=== PATIENT | male | born 1950 | race Two or more races ===

== ENCOUNTER 2022-06-22 10:58 | Observation (INO) ==
[2022-06-22 11:03] VITALS: BMI 32.5
--- NOTE | 2022-06-22 11:52 | DR.GENAD ---
HPI Time Seen Time Seen by Provider: 06/22/22 11:50 PCP Primary Care Physician: Porfirio Complaint/Symptoms Chief Complaint:: Pt c/o rectal bleeding x 2 to 3 weeks. He was scheduled to see Dr. Monroy at 3pm today for this complaint but nurse at office advised pt to come to ER instead. Pt states the amount of blood varies but is usually bright red and contains clots at times. Pt also c/o rectal pain. COVID-19 Coronavirus risk:travel/contact w/high risk person: No Has patient experienced Coronavirus symptoms: No Source History Provided: Patient Mode of Arrival Mode of Arrival: Ambulatory Timing Onset of Chief Complaint: 06/22/22 PMH PMH Past Medical History: Yes Past Medical History: Coronary Artery Disease, GERD, Hypertension, Liver Disease and Sleep Apnea Past Surgical History: Yes Surgical History: Cholecystectomy Past Surgical History Comment: cardiac stent placement x 2, "acid reflux surgery" Family History History of Family Medical Conditions: Yes Family Medical History: Diabetes Mellitus and Coronary Artery Disease Social History Does patient currently use any type of tobacco product: No Have you used tobacco products in the last 12 months: No Type of Tobacco Use: None Does any household member use tobacco: No Do you use any recreational Drugs:: No Lives With: Family Lives Where: Home Travel Risk Coronavirus risk:travel/contact w/high risk person: No Has patient experienced Coronavirus symptoms: No Infectious screening In the last 2 months have you had wt loss of >10#?: NO Have you had fever, night sweats or hemotysis?: No Have you traveled outside the country in the last 6 months?: No Isolation: Standard PE Vital Signs Vitals: Temperature 98.1 F Pulse Rate 80 Respiratory Rate 18 Blood Pressure [Left Arm] 144/67 Blood Pressure 151/69 O2 Sat by Pulse Oximetry 99 ROR Labs Reviewed Result Diagrams: 06/22/22 12:15 06/22/22 12:15 Laboratory: WBC 5.6 X10^3/uL (3.6-10.0) 06/22/22 12:15 RBC 3.64 X10^6/uL (4.7-6.0) L 06/22/22 12:15 Hgb 12.8 g/dL (13.5-18.0) L 06/22/22 12:15 Hct 35.7 % (42.0-54.0) L 06/22/22 12:15 MCV 98.1 fL (80.0-100.0) 06/22/22 12:15 MCH 35.1 pg (27.0-34.0) H 06/22/22 12:15 MCHC 35.7 g/dL (33.0-35.0) H 06/22/22 12:15 RDW 14.7 % (11.6-16.5) 06/22/22 12:15 Plt Count 151 X10^3/uL (150.0-450.0) 06/22/22 12:15 MPV 7.4 fL (7.4-11.0) 06/22/22 12:15 Neut % (Auto) 63.6 % (42.0-75.0) 06/22/22 12:15 Lymph % (Auto) 16.0 % (21.0-51.0) L 06/22/22 12:15 [place] % (Auto) 16.5 % (0.0-13.0) H 06/22/22 12:15 Eos % (Auto) 3.4 % (0.9-2.9) H 06/22/22 12:15 Baso % (Auto) 0.5 % (0.2-1.0) 06/22/22 12:15 Neut # (Auto) 3.6 x10^3/uL (2.2-4.8) 06/22/22 12:15 Lymph # (Auto) 0.9 X10^3/uL (1.3-2.9) L 06/22/22 12:15 [place] # (Auto) 0.9 x10^3/uL (0.3-0.8) H 06/22/22 12:15 Eos # (Auto) 0.2 x10^3/uL (0.0-0.2) 06/22/22 12:15 Baso # (Auto) 0.0 X10^3/uL (0.0-0.1) 06/22/22 12:15 Absolute Nucleated RBC 0.0 /100WBC 06/22/22 12:15 Sodium 138 mmol/L (136-145) 06/22/22 12:15 Corrected Sodium TNP 06/22/22 12:15 Potassium 3.7 mmol/L (3.5-5.1) 06/22/22 12:15 Chloride 104 mmol/L (98-107) 06/22/22 12:15 Carbon Dioxide 28.1 mmol/L (21-32) 06/22/22 12:15 BUN 11 mg/dL (7-18) 06/22/22 12:15 Creatinine 0.89 mg/dL (0.70-1.30) 06/22/22 12:15 Est GFR (MDRD) Af Amer > 60 (>60) 06/22/22 12:15 Est GFR (MDRD) Non-Af > 60 (>60) 06/22/22 12:15 Glucose 87 mg/dL (65-99) 06/22/22 12:15 Calcium 7.8 mg/dL (8.5-10.1) L 06/22/22 12:15 Corrected Calcium 9.7 mg/dL (8.5-10.1) 06/22/22 12:15 Total Bilirubin 2.20 mg/dL (0.2-1.0) H 06/22/22 12:15 AST 109 Units/L (15-37) H 06/22/22 12:15 ALT 45 Units/L (12-78) 06/22/22 12:15 Alkaline Phosphatase 245 Units/L (46-116) H 06/22/22 12:15 Ammonia 46 umol/L (11-32) H 06/22/22 12:15 Total Protein 6.7 g/dL (6.4-8.2) 06/22/22 12:15 Albumin 1.6 g/dL (3.4-5.0) L 06/22/22 12:15 Globulin 5.1 g/dL (2.5-4.5) H 06/22/22 12:15 Albumin/Globulin Ratio 0.3 Ratio (1.1-2.1) L 06/22/22 12:15 Amylase 36 Units/L (25-115) 06/22/22 12:15 Lipase 91 Units/L (73-393) 06/22/22 12:15 Specimen Type Clean catch urine 06/22/22 13:15 Urine Color Yellow (YELLOW) 06/22/22 13:15 Urine Appearance Clear (CLEAR) 06/22/22 13:15 Urine pH 8.0 (5.0 - 8.0) 06/22/22 13:15 Ur Specific [place] 1.015 (1.000-1.030) 06/22/22 13:15 Urine Protein Negative (NEGATIVE) 06/22/22 13:15 Urine Glucose (UA) Negative (NEGATIVE) 06/22/22 13:15 Urine Ketones Negative (NEGATIVE) 06/22/22 13:15 Urine Blood Negative (NEGATIVE) 06/22/22 13:15 Urine Nitrite Negative (NEGATIVE) 06/22/22 13:15 Urine Bilirubin Negative (NEGATIVE) 06/22/22 13:15 Urine Urobilinogen Normal (NORMAL) 06/22/22 13:15 Ur Leukocyte Esterase Negative (NEGATIVE) 06/22/22 13:15 Stool Description 100 grams 06/22/22 13:15 Stl Occult Blood (IFOB) Positive (NEGATIVE) A 06/22/22 13:15 SARS-CoV-2 (PCR) Negative (NEGATIVE) 06/22/22 15:52 Opioid Opioid Risk Tool Age (Sukhwinder box if 16-45): No History of Preadolescent Sexual Abuse: No Total: 0 Total Score Risk Category: Low Risk Copyright: Julio Cesar BURDICK predicting aberrant behaviors Discharge Plan Diagnosis Discharge Problem: Rectal bleeding, Hyperammonemia, Liver disease Discharge Plan Patient Disposition: 09 ADMITTED INPATIENT Condition: Stable Orders to Discharge Patient Discharge Orders: Transfer (Routine); Ordered 06/22/22 Ordered By: NAM BANERJEE
[2022-06-22 12:20] LABS: BASOPHILS % (AUTO) 0.5 % (0.2-1.0); EOSINOPHILS # (AUTO) 0.2 x10^3/uL (0.0-0.2); EOSINOPHILS % (AUTO) 3.4 % (0.9-2.9); HEMATOCRIT 35.7 % (42.0-54.0); HEMOGLOBIN 12.8 g/dL (13.5-18.0); LYMPHOCYTES # (AUTO) 0.9 X10^3/uL (1.3-2.9); MEAN CORPUSCULAR HEMOGLOBIN 35.1 pg (27.0-34.0); MEAN CORPUSCULAR HGB CONC 35.7 g/dL (33.0-35.0); MEAN CORPUSCULAR VOLUME 98.1 fL (80.0-100.0); MEAN PLATELET VOLUME 7.4 fL (7.4-11.0); MONOCYTES # (AUTO) 0.9 x10^3/uL (0.3-0.8); MONOCYTES % (AUTO) 16.5 % (0.0-13.0); NEUTROPHILS # (AUTO) 3.6 x10^3/uL (2.2-4.8); NEUTROPHILS % (AUTO) 63.6 % (42.0-75.0); RED BLOOD COUNT 3.64 X10^6/uL (4.7-6.0); RED CELL DISTRIBUTION WIDTH 14.7 % (11.6-16.5); WHITE BLOOD COUNT 5.6 X10^3/uL (3.6-10.0)
[2022-06-22 12:38] LABS: AMMONIA 46 umol/L (11-32)
[2022-06-22 12:42] LABS: ALANINE AMINOTRANSFERASE 45 Units/L (12-78); ALBUMIN 1.6 g/dL (3.4-5.0); ALKALINE PHOSPHATASE 245 Units/L (46-116); AMYLASE 36 Units/L (25-115); ASPARTATE AMINO TRANSFERASE 109 Units/L (15-37); BLOOD UREA NITROGEN 11 mg/dL (7-18); CALCIUM 7.8 mg/dL (8.5-10.1); CARBON DIOXIDE 28.1 mmol/L (21-32); CHLORIDE 104 mmol/L (98-107); COR CA(FOR HYPOALB) 9.7 mg/dL (8.5-10.1); CREATININE 0.89 mg/dL (0.70-1.30); LIPASE 91 Units/L (73-393); SODIUM 138 mmol/L (136-145); TOTAL PROTEIN 6.7 g/dL (6.4-8.2); eGFR NON BLACK RACES > 60 (>60)
[2022-06-22 13:24] LABS: BILIRUBIN,URINE NEGATIVE (NEGATIVE); BLOOD/HEMOGLOBIN,URINE NEGATIVE (NEGATIVE); GLUCOSE, URINE NEGATIVE (NEGATIVE); KETONES,URINE NEGATIVE (NEGATIVE); LEUKOCYTE ESTERASE ,URINE NEGATIVE (NEGATIVE); NITRITES,URINE NEGATIVE (NEGATIVE); PROTEIN,URINE NEGATIVE (NEGATIVE); UROBILINOGEN,URINE NORMAL (NORMAL)
[2022-06-22 13:28] LABS: APPEARANCE,URINE CLEAR (CLEAR); COLOR,URINE YELLOW (YELLOW)
[2022-06-22] MEDS ORDERED: BUTT CREAM (COMPOUND) TOP PRN (18:14)
[2022-06-22] MEDS ORDERED: BUTT CREAM (COMPOUND) ONE (18:15)
[2022-06-22] MEDS ORDERED: CHRONULAC ONE (18:17)
[2022-06-22] MEDS: CHRONULAC PO SCH ×2 (18:22→22:58)
[2022-06-22] MEDS ORDERED: PriLOSEC PO SCH (21:03)
[2022-06-22] MEDS: XIFAXAN PO SCH (22:58)
[2022-06-22] MEDS: PriLOSEC PO SCH (22:58)
[2022-06-23] MEDS: CHRONULAC PO SCH ×3 (05:28→21:03)
[2022-06-23 06:02] LABS: AMMONIA 76 umol/L (11-32)
[2022-06-23 06:18] LABS: BASOPHILS % (AUTO) 0.6 % (0.2-1.0); EOSINOPHILS # (AUTO) 0.2 x10^3/uL (0.0-0.2); EOSINOPHILS % (AUTO) 4.2 % (0.9-2.9); HEMATOCRIT 33.1 % (42.0-54.0); HEMOGLOBIN 11.7 g/dL (13.5-18.0); LYMPHOCYTES # (AUTO) 1.1 X10^3/uL (1.3-2.9); LYMPHOCYTES % (AUTO) 20.5 % (21.0-51.0); MEAN CORPUSCULAR HGB CONC 35.3 g/dL (33.0-35.0); MEAN CORPUSCULAR VOLUME 99.1 fL (80.0-100.0); MEAN PLATELET VOLUME 7.7 fL (7.4-11.0); MONOCYTES # (AUTO) 0.9 x10^3/uL (0.3-0.8); MONOCYTES % (AUTO) 16.3 % (0.0-13.0); NEUTROPHILS # (AUTO) 3.1 x10^3/uL (2.2-4.8); NEUTROPHILS % (AUTO) 58.4 % (42.0-75.0); RED BLOOD COUNT 3.33 X10^6/uL (4.7-6.0); RED CELL DISTRIBUTION WIDTH 14.7 % (11.6-16.5); WHITE BLOOD COUNT 5.4 X10^3/uL (3.6-10.0)
[2022-06-23 06:25] LABS: ALANINE AMINOTRANSFERASE 42 Units/L (12-78); ALBUMIN 1.4 g/dL (3.4-5.0); ALKALINE PHOSPHATASE 233 Units/L (46-116); AMYLASE 32 Units/L (25-115); ASPARTATE AMINO TRANSFERASE 102 Units/L (15-37); BLOOD UREA NITROGEN 11 mg/dL (7-18); CALCIUM 7.9 mg/dL (8.5-10.1); CHLORIDE 106 mmol/L (98-107); CREATININE 0.77 mg/dL (0.70-1.30); LIPASE 91 Units/L (73-393); MAGNESIUM 1.8 mg/dL (1.7-2.9); SODIUM 139 mmol/L (136-145); TOTAL PROTEIN 5.9 g/dL (6.4-8.2); eGFR NON BLACK RACES > 60 (>60)
[2022-06-23] MEDS: ALBUMIN HUMAN 25%- 100 ML 100 ML IV SCH (09:53)
[2022-06-23] MEDS: FLOMAX PO SCH (09:54)
[2022-06-23] MEDS: XIFAXAN PO SCH ×2 (09:54→20:18)
[2022-06-23] MEDS: LASIX PO SCH (09:54)
[2022-06-23] MEDS: PriLOSEC PO SCH (09:54)
[2022-06-23] MEDS: AMILORIDE 5 MG PO SCH (09:57)
[2022-06-23] MEDS: FLONASE NASAL SPRAY ENOSTRIL SCH ×2 (09:59→10:00)
--- NOTE | 2022-06-23 11:40 | DR.CONSULT ---
Consult - Consultation for Day of: Date: 06/23/22 - Chief Complaint Chief Complaint: Pt referred for rectal bleeding. - History of Present Illness History of Present Illness: Pt is a 72 y/o who is referred for rectal bleeding. Pt has complaints of rectal bleeding x3-4 weeks that became worse last week, and frequent lower abdominal pain. Denies dysphagia, dyspepsia, N/V, diarrhea, constipation, and melena. Pt reports last EGD and colonoscopy were November 2021, done at [facility] in [place], at which time 2-3 colon polyps were removed. 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 Currently takes Omeprazole daily. Pt is also on Lactulose daily. Denies current or past ETOH use. Hgb 11.7, Hct 33.1, Plt 139, Bun 11, Creat 0.77, T.bili 1.80, Ast 102, Alt 42, Alp 233, Ammonia 76. - Past Medical History Past Medical History: Coronary Artery Disease, Hypertension, Liver Disease, GERD, Sleep Apnea - Past Surgical History Surgical History: Cholecystectomy - Family History Family Medical History: Diabetes Mellitus, Coronary Artery Disease - Social History Does patient currently use any type of tobacco product: No Have you used tobacco products in the last 12 months: No Type of Tobacco Use: None Does any household member use tobacco: No Alcohol Use: None Drug Use: None - Medications Home Medications: No Known Drug Allergies [NKDA] Allergy (Verified 05/21/20 03:06) CONTINUE taking the following medications amiloride 5 mg tablet 10 tab PO DAILY 06/22/22 [History] cephalexin 500 mg capsule 1 cap PO QID 06/22/22 [History] fluticasone propionate 50 mcg/actuation nasal spray,suspension 50 spray intranasal PRN PRN 06/22/22 [History] furosemide 40 mg tablet 1 tab PO QDAY 06/22/22 [History] lactulose 10 gram/15 mL oral solution (Constulose) 30 ml PO TID 06/22/22 [History] omeprazole 20 mg capsule,delayed release 1 cap PO QDAY 06/22/22 [History] omeprazole 20 mg capsule,delayed release 1 cap PO QDAY 06/22/22 [History] rifaximin 550 mg tablet (Xifaxan) 1 tab PO BID 06/22/22 [History] tamsulosin 0.4 mg capsule 1 cap PO QDAY 06/22/22 [History] ticagrelor 90 mg tablet (Brilinta) 1 tab PO BID 06/22/22 [History] - Review of Systems Constitutional: denies: No Symptoms Reported, See HPI, Fever, Chills, Sweats, Weakness, Malaise, Other Eyes: denies: No Symptoms Reported, See HPI, Pain, Vision Change, Conjunctivae Inflammation, Eyelid Inflammation, Redness, Other ENT: denies: No Symptoms Reported, See HPI, Ear Pain, Ear Discharge, Nose Pain, Nose Discharge, Nose Congestion, Mouth Pain, Mouth Swelling, Throat Pain, Throat Swelling, Other Respiratory: denies: No Symptoms Reported, See HPI, Cough, Dry, Shortness of Breath, Hemoptysis, SOB with Excertion, Pleuritic Pain, Sputum, Wheezing, Other Cardiovascular: denies: No Symptoms Reported, Chest Pain, See HPI, Palpitations, Orthopnea, Paroxysmal Noc. Dyspnea, Edema, Light Headedness, Other Gastrointestinal: Abdominal Pain (Lower, comes and goes), Hematochezia. denies: No Symptoms Reported, See HPI, Nausea, Vomiting, Diarrhea, Constipation, Melena, Other Genitourinary: denies: No Symptoms Reported, See HPI, Dysuria, Frequency, Incontinence, Hematuria, Retention, Other Musculoskeletal: denies: No Symptoms Reported, See HPI, Shoulder Pain, Arm Pain, Back Pain, Hand Pain, Leg Pain, Foot Pain, Neck Pain, Other Skin: denies: No Symptoms Reported, See HPI, Rash, Lesions, Jaundice, Bruising, Wound, Ecchymosis, Other Neurological: denies: No Symptoms Reported, See HPI, Weakness, Numbness, Incoordination, Change in Speech, Confusion, Seizures, Other - Physical Exam Vital Signs: Temperature 98.3 F Pulse Rate [Left Brachial] 71 Pulse Rate 80 Respiratory Rate 20 Blood Pressure [Left Arm] 135/70 Blood Pressure 151/69 O2 Sat by Pulse Oximetry 95 Oriented: Normal. negative: Time, Person, Place, Not Oriented, Unable to test, Other Eyes: Normal Throat: negative: Normal, Tonsillar Hypertrophy, Red, Exudate, Dry, Other Respiratory: Clear Throughout. negative: Diminished Throughout, Rhonchi Throughout, Rales Throughout, Wheezes Throughout, RUL Clear, RML Clear, RLL Clear, JEAN-PAUL Clear, LML Clear, LLL Clear, RUL Diminished, RML Diminished, RLL Diminished, JEAN-PAUL Diminished, LML Diminished, LLL Diminished, RUL Absent, RML Absent, RLL Absent, JEAN-PAUL Absent, LML Absent, LLL Absent, RUL Rhonchi, RML Rhonchi, RLL Rhonchi, JEAN-PAUL Rhonchi, LML Rhonchi, LLL Rhonchi, RUL Insp. Wheeze, RML Insp. Wheeze, RLL Insp. Wheeze, JEAN-PAUL Insp.Wheeze, LML Insp.Wheeze, LLL Insp.W heeze, RUL Exp. Wheeze, RML Exp. Wheeze, RLL Exp. Wheeze, JEAN-PAUL Exp. Wheeze, LML Exp. Wheeze, LLL Exp. Wheeze, RUL Rales, RML Rales, RLL Rales, JEAN-PAUL Rales, LML Rales, LLL Rales, RUL Rub, RML Rub, RLL Rub, JEAN-PAUL Rub, LML Rub, LLL Rub, RUL Squeak, RML Squeak, RLL Squeak, JEAN-PAUL Squeak, LML Squeak, LLL Squeak Cardiovascular: Normal. negative: Tachycardia, Bradycardia, Irregular, S3, S4, Systolic, Diastolic, Murmur, Edema, Other : Normal. negative: Dysuria, Hematuria, Frequency, Discharge, Testicular Pain, Bleeding, , Other Auscultation: Bowel Sounds: Normal. negative: Bruit, Absent, Increased, Decreased, High Pitched, Other Tenderness: Normal (Non-tender), Other (Abdominal distention). negative: Diffuse, RUQ, RLQ, LUQ, LLQ, Epigastric, Periumbilical, Suprapubic, Mild, Moderate, Severe, Rebound, Guarding, Rigidity Skin: Normal. negative: Decreased Turgur, Rash, Papular, Macular, Maculopapular, Vesicular, Pustular, Petechial, Red, Tender, Hot, Diaphoresis, Wound, Bruising, Ecchymosis, Other Musculoskeletal: Normal. negative: Right, Left, Shoulder, Clavicle, Arm, Elbow, Forearm, Wrist, Hand, Hip, Thigh, Knee, Leg, Ankle, Foot, Back:Thoracic, Back:Lumbar, Back:Midline, Back:Paraspinous, Pelvis, Swelling, Tender, Deformity, Pulse Deficit, Motor Deficit, Sensory Deficit, Instability, Crepitance Psychiatric: Normal. negative: Anxiety, Depression, Agitation, Other Mood Description: Calm. negative: Angry, Apathetic, Depressed, Fearful, Flat, Happy, Hostile, Sad, Suspicious, Withdrawn, Anxious, Appropriate, Labile Affect: negative: Angry, Anxious, Depressed, Flat, Hysterical, Quiet, Violent, Normal Speech Pattern: Clear, Appropriate. negative: Unclear, Inappropriate, Delayed, Slurred, Excessive, Aphasic, Artificially Ventilated, Trach(not ventilated) - Plan Plan: Assessment. 1. Hematochezia, H/O rectal polyps. 2. Abnormal LFTs. 3. Anemia. Plan. 1. Liver workup, continue to monitor LFTs. Monitor Hgb, transfuse as needed. Will plan on colonoscopy . Plan D/W Dr. Arceo - Allergies Allergies/Adverse Reactions: Allergies Allergy/AdvReac Type Severity Reaction Status Date / Time No Known Drug Allergies Allergy Verified 05/21/20 03:06 [NKDA]
[2022-06-23 12:01] LABS: ALBUMIN 1.4 g/dL (3.4-5.0); BILIRUBIN,DIRECT 1.1 mg/dL (0-0.2); TOTAL PROTEIN 5.9 g/dL (6.4-8.2)
--- NOTE | 2022-06-23 13:56 | DR.H&P ---
H&P - History & Physical for Day of: H&P Date: 06/22/22 - Chief Complaint Chief Complaint: RECTAL BLEEDING, LOWER ABDOMINAL PAIN - History of Present Illness History of Present Illness: IS A 72 YEAR OLD PATIENT OF OURS. HE PRESENTED TO THE ER WITH COMPLAINTS OF RECTAL BLEEDING FOR THE PAST 2-3 WEEKS AND LOWER ABDOMINAL PAIN. HE DESCRIBES BLOOD BRIGHT RED WITH CLOTS AT TIMES. HE ALSO COMPLAINS OF RECTAL PAIN. HE DENIES DYSPHAGIA, DYSPEPSIA, N/V, DIARRHEA, CONSTIPATION, AND MELENA. HE REPORTS HAVING CARDIAC STENT PLACEMENT X 2 ON MAY 29. HE WAS STARTED ON BRILINTA AT THAT TIME. OTHER PMH INCLUDES: CAD, GERD, HTN, LIVER DISEASE, SLEEP APNEA. HE REPORTS THAT HE IS ON STANDBY FOR THE LIVER TRANSPLANT LIST UNTIL HE COMES OFF OF THE BRILINTA. ON ARRIVAL, HIS VITALS WERE: 98.1-80-18-96%-151/69. LABS WERE OBTAINED. WBC 5.6, RBC 3.64, HGB 12.8, HCT 35.7, SODIUM 138, POTASSIUM 3.7, CHLORIDE 104, BUN 11, CREATININE 0.89, GLUCOSE 87, CALCIUM 7.8, TOTAL BILI 2.20, AST 109, ALT 45, ALK PHOS 245, AMMONIA 46, TOTAL PROTEIN 6.7, ALBUMIN 1.6, GLOBULIN 5.1. URINALYSIS WAS OBTAINED AND WAS UNREMARKABLE. STOOL FOR OCCULT BLOOD IS POSITIVE. COVID-19 NEGATIVE. PATIENT WAS ADMITTED TO THE HOSPITAL FOR FURTHER EVALUATION AND TREATMENT OF RECTAL BLEEDING, HYPERAMMONEMIA, AND LIVER DISEASE. HE WAS STARTED ON ALBUMIN 25% IV DAILY, PEPCID 20MG IV BID, PROTONIX 40MG IV BID. HIS HOME MEDICATIONS OF LASIX, CHRONULAC, PRILOSEC, XIFAXAN, BRILINTA, AND FLOMAX WERE ALSO RESUMED. WE HAVE CONSULTED WITH AND HE PLANS TO SEE PATIENT TODAY. OTHERWISE, WE WILL FOLLOW-UP WITH AM LABS AND CONTINUE TO MONITOR. TIME SPENT ON CLINICAL ASSES SMENT, REVIWING LABS AND IMAGING, DECISION MAKING, AND DOCUMENTATION GREATER THAN 45 MINUTES. - Past Medical History Past Medical History: Coronary Artery Disease, Hypertension, Liver Disease, GERD, Sleep Apnea - Past Surgical History Surgical History: Cholecystectomy - Family History Family Medical History: Diabetes Mellitus, Coronary Artery Disease - Social History Does patient currently use any type of tobacco product: No Have you used tobacco products in the last 12 months: No Type of Tobacco Use: None Does any household member use tobacco: No Alcohol Use: None Drug Use: None - Medications Home Medications: No Known Drug Allergies [NKDA] Allergy (Verified 05/21/20 03:06) CONTINUE taking the following medications amiloride 5 mg tablet 10 tab PO DAILY 06/22/22 [History] cephalexin 500 mg capsule 1 cap PO QID 06/22/22 [History] fluticasone propionate 50 mcg/actuation nasal spray,suspension 50 spray intranasal PRN PRN 06/22/22 [History] furosemide 40 mg tablet 1 tab PO QDAY 06/22/22 [History] lactulose 10 gram/15 mL oral solution (Constulose) 30 ml PO TID 06/22/22 [History] omeprazole 20 mg capsule,delayed release 1 cap PO QDAY 06/22/22 [History] omeprazole 20 mg capsule,delayed release 1 cap PO QDAY 06/22/22 [History] rifaximin 550 mg tablet (Xifaxan) 1 tab PO BID 06/22/22 [History] tamsulosin 0.4 mg capsule 1 cap PO QDAY 06/22/22 [History] ticagrelor 90 mg tablet (Brilinta) 1 tab PO BID 06/22/22 [History] - Review of Systems Eyes: No Symptoms Reported ENT: No Symptoms Reported Respiratory: No Symptoms Reported Cardiovascular: No Symptoms Reported Gastrointestinal: See HPI, Abdominal Pain, Hematochezia. denies: Nausea, Vomiting, Diarrhea, Constipation, Melena Genitourinary: No Symptoms Reported Musculoskeletal: No Symptoms Reported Skin: No Symptoms Reported Neurological: No Symptoms Reported - Physical Exam Vital Signs: Temperature 98.3 F Pulse Rate [Left Brachial] 71 Pulse Rate 80 Respiratory Rate 20 Blood Pressure [Left Arm] 135/70 Blood Pressure 151/69 O2 Sat by Pulse Oximetry 95 Oriented: Normal. negative: Time, Person, Place, Not Oriented, Unable to test, Other Eyes: Normal Ear: Normal Nose: Normal Throat: Normal Respiratory: Clear Throughout Cardiovascular: Normal : Normal Auscultation: Bowel Sounds: Normal Palpation: Normal Tenderness: RLQ, LLQ, Mild Skin: Normal Musculoskeletal: Normal Psychiatric: Normal Mood Description: Calm Affect: Normal Speech Pattern: Clear - Assessment/Plan (1) Rectal bleeding Status: Acute Plan: CONSULT GI, ALBUMIN 25% IV DAILY, PEPCID 20MG IV BID, PROTONIX 40MG IV BID, RESUME HOME MEDS (2) Hyperammonemia Status: Acute (3) Liver disease Status: Acute (4) HTN (hypertension) Qualifiers: Hypertension type: primary hypertension Qualified Code(s): I10 - Essential (primary) hypertension Status: Chronic (5) CAD (coronary artery disease) Qualifiers: Coronary Disease-Associated Artery/Lesion type: [place] artery [place] vs. transplanted heart: [place] heart Associated angina: unspecified whether angina present Qualified Code(s): I25.10 - Atherosclerotic heart disease of [place] coronary artery without angina pectoris Status: Chronic (6) S/P arterial stent Status: Acute - Allergies Allergies/Adverse Reactions: Allergies Allergy/AdvReac Type Severity Reaction Status Date / Time No Known Drug Allergies Allergy Verified 05/21/20 03:06 [NKDA]
[2022-06-23] MEDS: PEPCID 20 MG VIAL 20 MG in NS 50 ML IV 50 ML IV SCH ×2 (14:43→20:18)
[2022-06-23] MEDS: BRILINTA PO SCH ×2 (14:43→20:18)
[2022-06-23] MEDS: PROTONIX INJ 40 MG VIAL IVP SCH ×2 (14:43→20:18)
[2022-06-23] MEDS ORDERED: NS 500 ML IV 500 ML IV PRN (19:30)
[2022-06-23] MEDS ORDERED: NS 500 ML IV 500 ML IV ONE (19:40)
[2022-06-24] MEDS: CHRONULAC PO SCH ×3 (05:20→21:08)
[2022-06-24 06:03] LABS: BASOPHILS % (AUTO) 0.7 % (0.2-1.0); EOSINOPHILS # (AUTO) 0.2 x10^3/uL (0.0-0.2); EOSINOPHILS % (AUTO) 4.5 % (0.9-2.9); HEMOGLOBIN 12.1 g/dL (13.5-18.0); LYMPHOCYTES # (AUTO) 1.1 X10^3/uL (1.3-2.9); LYMPHOCYTES % (AUTO) 21.3 % (21.0-51.0); MEAN CORPUSCULAR HEMOGLOBIN 34.6 pg (27.0-34.0); MEAN CORPUSCULAR HGB CONC 35.5 g/dL (33.0-35.0); MEAN CORPUSCULAR VOLUME 97.5 fL (80.0-100.0); MEAN PLATELET VOLUME 7.5 fL (7.4-11.0); MONOCYTES # (AUTO) 0.8 x10^3/uL (0.3-0.8); MONOCYTES % (AUTO) 15.9 % (0.0-13.0); NEUTROPHILS % (AUTO) 57.6 % (42.0-75.0); RED BLOOD COUNT 3.49 X10^6/uL (4.7-6.0); RED CELL DISTRIBUTION WIDTH 14.7 % (11.6-16.5); WHITE BLOOD COUNT 5.2 X10^3/uL (3.6-10.0)
[2022-06-24 06:18] LABS: ALANINE AMINOTRANSFERASE 44 Units/L (12-78); ALBUMIN 1.8 g/dL (3.4-5.0); ALKALINE PHOSPHATASE 226 Units/L (46-116); ASPARTATE AMINO TRANSFERASE 101 Units/L (15-37); BLOOD UREA NITROGEN 9 mg/dL (7-18); CALCIUM 7.9 mg/dL (8.5-10.1); CARBON DIOXIDE 27.1 mmol/L (21-32); CHLORIDE 107 mmol/L (98-107); COR CA(FOR HYPOALB) 9.7 mg/dL (8.5-10.1); CREATININE 0.72 mg/dL (0.70-1.30); SODIUM 141 mmol/L (136-145); TOTAL PROTEIN 6.3 g/dL (6.4-8.2); eGFR NON BLACK RACES > 60 (>60)
[2022-06-24] MEDS: ALBUMIN HUMAN 25%- 100 ML 100 ML IV SCH (09:52)
[2022-06-24] MEDS: AMILORIDE 5 MG PO SCH ×3 (09:52→11:31)
[2022-06-24] MEDS: BRILINTA PO SCH ×2 (09:53→20:35)
[2022-06-24] MEDS: LASIX PO SCH (09:54)
[2022-06-24] MEDS: FLOMAX PO SCH (09:54)
[2022-06-24] MEDS: PEPCID 20 MG VIAL 20 MG in NS 50 ML IV 50 ML IV SCH ×2 (09:54→20:34)
[2022-06-24] MEDS: FLONASE NASAL SPRAY ENOSTRIL SCH (09:54)
[2022-06-24] MEDS: PROTONIX INJ 40 MG VIAL IVP SCH ×2 (09:55→20:34)
[2022-06-24] MEDS: XIFAXAN PO SCH ×2 (09:55→20:35)
[2022-06-24] MEDS ORDERED: DULCOLAX TAB EC 5 MG PO ONE (17:32)
[2022-06-24] MEDS ORDERED: MIRALAX POWDER (255 GRAMS BTL) PO ONE (18:00)
[2022-06-24] MEDS ORDERED: DULCOLAX TAB EC 5 MG PO SCH (21:00)
[2022-06-25 06:20] LABS: BASOPHILS % (AUTO) 0.4 % (0.2-1.0); EOSINOPHILS # (AUTO) 0.2 x10^3/uL (0.0-0.2); HEMATOCRIT 33.5 % (42.0-54.0); HEMOGLOBIN 11.9 g/dL (13.5-18.0); LYMPHOCYTES % (AUTO) 16.3 % (21.0-51.0); MEAN CORPUSCULAR HEMOGLOBIN 35.2 pg (27.0-34.0); MEAN CORPUSCULAR HGB CONC 35.6 g/dL (33.0-35.0); MEAN CORPUSCULAR VOLUME 98.7 fL (80.0-100.0); MEAN PLATELET VOLUME 7.5 fL (7.4-11.0); MONOCYTES % (AUTO) 16.2 % (0.0-13.0); NEUTROPHILS # (AUTO) 3.9 x10^3/uL (2.2-4.8); NEUTROPHILS % (AUTO) 63.1 % (42.0-75.0); RED BLOOD COUNT 3.39 X10^6/uL (4.7-6.0); RED CELL DISTRIBUTION WIDTH 14.9 % (11.6-16.5); WHITE BLOOD COUNT 6.1 X10^3/uL (3.6-10.0)
[2022-06-25] MEDS: CHRONULAC PO SCH ×2 (06:24→13:16)
[2022-06-25 06:44] LABS: ALANINE AMINOTRANSFERASE 43 Units/L (12-78); ALBUMIN 2.1 g/dL (3.4-5.0); ALKALINE PHOSPHATASE 211 Units/L (46-116); ASPARTATE AMINO TRANSFERASE 94 Units/L (15-37); BLOOD UREA NITROGEN 8 mg/dL (7-18); CALCIUM 8.1 mg/dL (8.5-10.1); CARBON DIOXIDE 27.4 mmol/L (21-32); CHLORIDE 107 mmol/L (98-107); COR CA(FOR HYPOALB) 9.6 mg/dL (8.5-10.1); CREATININE 0.77 mg/dL (0.70-1.30); SODIUM 141 mmol/L (136-145); TOTAL PROTEIN 6.4 g/dL (6.4-8.2); eGFR NON BLACK RACES > 60 (>60)
[2022-06-25] MEDS: AMILORIDE 5 MG PO SCH (08:41)
[2022-06-25] MEDS: FLOMAX PO SCH (08:42)
[2022-06-25] MEDS: LASIX PO SCH (08:42)
[2022-06-25] MEDS: BRILINTA PO SCH (08:42)
[2022-06-25] MEDS: ALBUMIN HUMAN 25%- 100 ML 100 ML IV SCH (08:43)
[2022-06-25] MEDS: FLONASE NASAL SPRAY ENOSTRIL SCH (08:46)
[2022-06-25] MEDS: XIFAXAN PO SCH (08:47)
[2022-06-25] MEDS: PROTONIX INJ 40 MG VIAL IVP SCH (08:49)
[2022-06-25] MEDS: PEPCID 20 MG VIAL 20 MG in NS 50 ML IV 50 ML IV SCH (10:09)
--- NOTE | 2022-06-25 12:43 | PCM.PROG ---
Progress Note - Progress Note for Day of Date of Exam: 06/24/22 - Subjective Subjective: IS CURRENTLY OBSERVATION STATUS FOR TREATMENT OF RECTAL BLEEDING, LOWER ABDOMINAL PAIN, HYPERAMMONEMIA, AND LIVER DISEASE. TODAY, HE IS ALERT AND ORIENTED, LYING IN BED ON MORNING ROUNDS. HE CONTINUES WITH COMPLAINTS OF LOWER ABDOMINAL PAIN AND CRAMPING AT TIMES. HE COMPLAINS OF INTERMITTENT WEAKNESS. HE CONTINUES TO HAVE BLOOD IN STOOL, HOWEVER, HE REPORTS THAT BLEEDING IS SLOWING DOWN. HE IS CURRENTLY ON BRILINTA DUE TO RECENT CARDIAC STENT PLACEMENT. ON EXAMINATION, HEART IS REGULAR IN RATE AND RHYTHM. BILATERAL LUNGS NOTED WITH DIMINISHED LUNG SOUNDS THROUGHOUT. ABDOMEN IS ROUND, SOFT, AND NOTED WITH MILD LOWER QUADRANTS TENDERNESS. NORMAL BOWEL SOUNDS ARE NOTED. NO UPPER OR LOWER EXTREMITY EDEMA NOTED. HIS VITALS THIS MORNING ARE: 98.3-71-20-95%-135/70. LABS WERE OBTAINED. WBC 5.2, RBC 3.49, HGB 12.1, HCT 34.0, PLT COUNT 145, SODIUM 141, POTASSIUM 3.8, CHLORIDE 107, BUN 9, CREATININE 0.72, GLUCOSE 76, CALCIUM 7.9, TOTAL BILI 2.30, AST 101, ALT 44, ALK PHOS 226, TOTAL PROTEIN 6.3, ALBUMIN 1.8. HE IS CURRENTLY RECEIVING ALBUMIN 25% IV DAILY, PEPCID 20MG IV BID, NC OTONIX 40MG IV BID. HIS HOME MEDICATIONS OF LASIX, CHRONULAC, PRILOSEC, XIFAXAN, BRILINTA, AND FLOMAX WERE ALSO RESUMED. HAS CONSULTED WITH PATIENT AND PLANS FOR A COLONOSCOPY T[place]. WE WILL BEGIN THE BOWEL PREP TONIGHT. OTHERWISE, WE WILL FOLLOW-UP WITH AM LABS AND CONTINUE TO MONITOR. TIME SPENT ON CLINICAL ASSESSMENT, REVIWING LABS AND IMAGING, DECISION MAKING, AND DOCUMENTATION GREATER THAN 45 MINUTES. - Past Medical Family Social History Past Med/Fam/Surg Hx: No changes since H&P Allergies: Allergies No Known Drug Allergies [NKDA] Allergy (Verified 05/21/20 03:06) - Review of Systems ROS: No change since H&P - Vital Signs and I&O's Vital Signs: Temperature 97.7 F Pulse Rate [Left Brachial] 63 Pulse Rate 80 Respiratory Rate 18 Blood Pressure [Left Arm] 136/65 Blood Pressure 151/69 O2 Sat by Pulse Oximetry 95 Intake and Output: Intake & Output 06/23/22 06/24/22 06/25/22 06/26/22 11:59 11:59 11:59 11:59 Intake Total 720 / 720 2593 / 2593 2680 / 2680 Balance 720 / 720 2593 / 2593 2680 / 2680 - Physical Exam Oriented: Normal. negative: Time, Person, Place, Not Oriented, Unable to test, Other Eyes: Normal Ear: Normal Nose: Normal Throat: Normal Respiratory: Generalized, Diminished Cardiovascular: Normal : Normal Auscultation: Bowel Sounds: Normal Palpation: Normal Tenderness: RLQ, LLQ, Mild Skin: Normal Musculoskeletal: Normal Psychiatric: Normal Mood Description: Calm Affect: Normal Speech Pattern: Clear - Laboratory and Diagnostics Result Diagrams: 06/25/22 05:29 06/25/22 05:29 Labs: Laboratory WBC 6.1 X10^3/uL (3.6-10.0) 06/25/22 05:29 RBC 3.39 X10^6/uL (4.7-6.0) L 06/25/22 05:29 Hgb 11.9 g/dL (13.5-18.0) L 06/25/22 05:29 Hct 33.5 % (42.0-54.0) L 06/25/22 05:29 MCV 98.7 fL (80.0-100.0) 06/25/22 05:29 MCH 35.2 pg (27.0-34.0) H 06/25/22 05:29 MCHC 35.6 g/dL (33.0-35.0) H 06/25/22 05:29 RDW 14.9 % (11.6-16.5) 06/25/22 05:29 Plt Count 140 X10^3/uL (150.0-450.0) L 06/25/22 05:29 MPV 7.5 fL (7.4-11.0) 06/25/22 05:29 Neut % (Auto) 63.1 % (42.0-75.0) 06/25/22 05:29 Lymph % (Auto) 16.3 % (21.0-51.0) L 06/25/22 05:29 [place] % (Auto) 16.2 % (0.0-13.0) H 06/25/22 05:29 Eos % (Auto) 4.0 % (0.9-2.9) H 06/25/22 05:29 Baso % (Auto) 0.4 % (0.2-1.0) 06/25/22 05:29 Neut # (Auto) 3.9 x10^3/uL (2.2-4.8) 06/25/22 05:29 Lymph # (Auto) 1.0 X10^3/uL (1.3-2.9) L 06/25/22 05:29 [place] # (Auto) 1.0 x10^3/uL (0.3-0.8) H 06/25/22 05:29 Eos # (Auto) 0.2 x10^3/uL (0.0-0.2) 06/25/22 05:29 Baso # (Auto) 0.0 X10^3/uL (0.0-0.1) 06/25/22 05:29 Absolute Nucleated RBC 0.1 /100WBC 06/25/22 05:29 PT 17.0 SECONDS (11.8-14.3) 06/23/22 05:09 INR Target Range - 06/23/22 05:09 INR 1.43 (0.8-1.3) H 06/23/22 05:09 Sodium 141 mmol/L (136-145) 06/25/22 05:29 Corrected Sodium TNP 06/25/22 05:29 Potassium 4.2 mmol/L (3.5-5.1) 06/25/22 05:29 Chloride 107 mmol/L (98-107) 06/25/22 05:29 Carbon Dioxide 27.4 mmol/L (21-32) 06/25/22 05:29 BUN 8 mg/dL (7-18) 06/25/22 05:29 Creatinine 0.77 mg/dL (0.70-1.30) 06/25/22 05:29 Est GFR (MDRD) Af Amer > 60 (>60) 06/25/22 05:29 Est GFR (MDRD) Non-Af > 60 (>60) 06/25/22 05:29 Glucose 76 mg/dL (65-99) 06/25/22 05:29 Calcium 8.1 mg/dL (8.5-10.1) L 06/25/22 05:29 Corrected Calcium 9.6 mg/dL (8.5-10.1) 06/25/22 05:29 Magnesium 1.8 mg/dL (1.7-2.9) 06/23/22 05:09 Iron 60 ug/dL (50-175) 06/23/22 06:09 Transferrin 121 mg/dL (202-364) L 06/23/22 06:09 Ferritin 301 ng/mL (26-388) 06/23/22 06:09 Total Bilirubin 2.50 mg/dL (0.2-1.0) H 06/25/22 05:29 Direct Bilirubin 1.10 mg/dL (0-0.2) H 06/23/22 06:09 Indirect Bilirubin 0.60 mg/dL (0.2-0.8) 06/23/22 06:09 AST 94 Units/L (15-37) H 06/25/22 05:29 ALT 43 Units/L (12-78) 06/25/22 05:29 Alkaline Phosphatase 211 Units/L (46-116) H 06/25/22 05:29 Ammonia 44 umol/L (11-32) H 06/25/22 08:55 Total Protein 6.4 g/dL (6.4-8.2) 06/25/22 05:29 Albumin 2.1 g/dL (3.4-5.0) L 06/25/22 05:29 Globulin 4.3 g/dL (2.5-4.5) 06/25/22 05:29 Albumin/Globulin Ratio 0.5 Ratio (1.1-2.1) L 06/25/22 05:29 Amylase 32 Units/L (25-115) 06/23/22 05:09 Lipase 91 Units/L (73-393) 06/23/22 05:09 Specimen Type Clean catch urine 06/22/22 13:15 Urine Color Yellow (YELLOW) 06/22/22 13:15 Urine Appearance Clear (CLEAR) 06/22/22 13:15 Urine pH 8.0 (5.0 - 8.0) 06/22/22 13:15 Ur Specific [place] 1.015 (1.000-1.030) 06/22/22 13:15 Urine Protein Negative (NEGATIVE) 06/22/22 13:15 Urine Glucose (UA) Negative (NEGATIVE) 06/22/22 13:15 Urine Ketones Negative (NEGATIVE) 06/22/22 13:15 Urine Blood Negative (NEGATIVE) 06/22/22 13:15 Urine Nitrite Negative (NEGATIVE) 06/22/22 13:15 Urine Bilirubin Negative (NEGATIVE) 06/22/22 13:15 Urine Urobilinogen Normal (NORMAL) 06/22/22 13:15 Ur Leukocyte Esterase Negative (NEGATIVE) 06/22/22 13:15 Stool Description 100 grams 06/22/22 13:15 Stl Occult Blood (IFOB) Positive (NEGATIVE) A 06/22/22 13:15 SARS-CoV-2 (PCR) Negative (NEGATIVE) 06/22/22 15:52 - Plan (1) Rectal bleeding Status: Acute Plan: CONSULT GI, ALBUMIN 25% IV DAILY, PEPCID 20MG IV BID, PROTONIX 40MG IV BID, RESUME HOME MEDS (2) Hyperammonemia Status: Acute (3) Liver disease Status: Acute (4) HTN (hypertension) Status: Chronic Qualifiers: Hypertension type: primary hypertension Qualified Code(s): I10 - Essential (primary) hypertension (5) CAD (coronary artery disease) Status: Chronic Qualifiers: Coronary Disease-Associated Artery/Lesion type: [place] artery [place] vs. transplanted heart: [place] heart Associated angina: unspecified whether angina present Qualified Code(s): I25.10 - Atherosclerotic heart disease of [place] coronary artery without angina pectoris (6) S/P arterial stent Status: Acute
[2022-06-25] MEDS ORDERED: D5 LR 1,000 ML 1,000 ML IV ONE (13:32)
[2022-06-25] MEDS ORDERED: DIPRIVAN VIAL 20 ML ONE ×2 (13:48→13:55)
[2022-06-25 14:43] VITALS: BP 136/78
[2022-06-26 08:27] LABS: HEPATITIS B SURFACE ANTIGEN Negative (Negative)
[2022-06-26 08:30] LABS: ANTI-NUCLEAR ANTIBODY TEST None Detected (None Detected)
== END 2022-06-25 15:00 | disposition home or self-care (01) ==
LOC: U 10:58 → ER 10:58 → U 16:50 → MED/SURG 22:30
PROVIDERS: ADMIT Internal Medicine; ATTEND Internal Medicine
DX: K57.30 Diverticulosis of large intestine without perforation or abscess without bleeding; K64.1 Second degree hemorrhoids; R79.1 Abnormal coagulation profile; K74.60 Unspecified cirrhosis of liver; Z86.010 Personal history of colon polyps; Z98.890 Other specified postprocedural states; Z20.822 Contact with and (suspected) exposure to COVID-19; K64.0 First degree hemorrhoids; I25.10 Atherosclerotic heart disease of native coronary artery without angina pectoris; K21.9 Gastro-esophageal reflux disease without esophagitis; I10 Essential (primary) hypertension; K62.5 Hemorrhage of anus and rectum; R94.5 Abnormal results of liver function studies